=== PATIENT | female | born 1955 | race Caucasian/White ===

== ENCOUNTER → 2017-01-19 | Outpatient (CLI) | payer BC ==
--- NOTE | 2017-01-20 08:21 | MM ---
Reason for exam: screening (asymptomatic). Last mammogram was performed 1 year and 2 months ago. History: Patient is postmenopausal. Took hormonal contraceptives for 22 years. Taking estrogen for 7 years beginning at age 53. Physical Findings: A clinical breast exam by your physician is recommended on an annual basis and results should be correlated with mammographic findings. MG Screening Mammo w CAD Bilateral CC and MLO view(s) were taken. Prior study comparison: November 06, 2015, left breast MG 3d work up w/cad LT. October 22, 2015, bilateral MG screening mammo w CAD. The breast tissue is heterogeneously dense. This may lower the sensitivity of mammography. There is no discrete abnormality. No significant changes when compared with prior studies. ASSESSMENT: Negative, BI-RAD 1 RECOMMENDATION: Routine screening mammogram of both breasts in 1 year.
== END | disposition home or self-care (01) ==
LOC: RADMAMWWP 13:46
PROVIDERS: ATTEND Internal Medicine
DX: Z12.31 Encounter for screening mammogram for malignant neoplasm of breast (principal)

== ENCOUNTER → 2017-09-06 | Outpatient (CLI) | payer BC ==
--- NOTE | 2017-09-06 15:56 | XR ---
EXAMINATION TYPE: XR chest 2V DATE OF EXAM: 09/06/2017 COMPARISON: NONE HISTORY: Persistent cough TECHNIQUE: Frontal and lateral views of the chest are obtained. FINDINGS: There is no focal air space opacity, pleural effusion, or pneumothorax seen. The cardiac silhouette size is within normal limits. Spinal curvature could be positional. Some linear scarring or atelectasis present in the lingula. The osseous structures are intact. IMPRESSION: No acute cardiopulmonary process.
== END | disposition home or self-care (01) ==
LOC: RADXRYALE 13:36
PROVIDERS: ATTEND Internal Medicine
DX: R05 Cough (principal)
CPT/HCPCS: 71020

== ENCOUNTER → 2018-01-22 | Outpatient (CLI) | payer BC ==
--- NOTE | 2018-01-23 11:15 | MM ---
Reason for exam: screening (asymptomatic). Last mammogram was performed 1 year ago. History: Patient is postmenopausal. Took hormonal contraceptives for 22 years. Taking estrogen for 7 years beginning at age 53. MG Screening Mammo w CAD Bilateral CC and MLO view(s) were taken. Prior study comparison: January 19, 2017, bilateral MG screening mammo w CAD. November 06, 2015, left breast MG 3d work up w/cad LT. There are scattered fibroglandular densities. No significant changes when compared with prior studies. ASSESSMENT: Benign, BI-RAD 2 RECOMMENDATION: Routine screening mammogram of both breasts in 1 year.
== END | disposition home or self-care (01) ==
LOC: RADMAMWWP 11:21
PROVIDERS: ATTEND Internal Medicine
DX: Z12.31 Encounter for screening mammogram for malignant neoplasm of breast (principal)
CPT/HCPCS: 77067

== ENCOUNTER → 2019-02-05 | Outpatient (CLI) | payer BC ==
--- NOTE | 2019-02-05 16:21 | XR ---
EXAMINATION TYPE: XR ankle complete LT DATE OF EXAM: 02/05/2019 CLINICAL HISTORY: Lateral left ankle pain after straining injury 12 days ago TECHNIQUE: Frontal, lateral and oblique images of the left ankle are obtained. COMPARISON: None. FINDINGS: There is no acute fracture/dislocation evident in the left ankle. The ankle mortise appea rs within normal limits. The overlying soft tissue appears unremarkable. IMPRESSION: There is no acute fracture or dislocation in the left ankle.
--- NOTE | 2019-02-05 16:22 | XR ---
EXAMINATION TYPE: XR Hip Complete RT DATE OF EXAM: 02/05/2019 CLINICAL HISTORY: Right hip pain for 2 to 3 years TECHNIQUE: AP and frogleg views of the right hip are obtained. COMPARISON: None. FINDINGS: There is no acute fracture/dislocation evident in the right hip. The joint space in the r ight hip appears mildly narrowed in a cephalomedial direction. There is acetabular roof sclerosis and small osteophyte of the superior acetabular rim. Minimal sclerosis is also seen of the visualized po rtion of the right sacroiliac joint. The overlying soft tissue appears unremarkable. IMPRESSION: There is no acute fracture or dislocation in the right hip. Moderate right femoral aceta bular arthropathy and mild degenerative changes of the visualized portions of the sacroiliac joint.
--- NOTE | 2019-02-05 16:25 | XR ---
EXAMINATION TYPE: XR lumbosacral spine min 4V DATE OF EXAM: 02/05/2019 CLINICAL HISTORY: Chronic low back pain since 2012 TECHNIQUE: Frontal, lateral, and oblique images of the lumbar spine are obtained. COMPARISON: None FINDINGS: There are 5 lumbar type vertebral bodies identified. The lumbar spine shows satisfactory vertebral body heights. There is grade 1 anterolisthesis of L4 on L5. No distinct pars interarticular is defects are seen. This may be due to facet arthropathy and facet arthropathy is seen from L3 throu gh S1. Very minimal anterior osteophytes are also seen throughout the lumbar spine. No significant ne ural foraminal narrowing on the oblique views radiographically. Transverse processes and pedicles are unremarkable. The overlying soft tissue appears unremarkable. IMPRESSION: No acute fracture of the lumbar spine. Grade 1 anterolisthesis of L4 on L5 is likely due to hypertrophic facet changes.
== END | disposition home or self-care (01) ==
LOC: RADXRYALE 15:54
PROVIDERS: ATTEND Internal Medicine
DX: M16.11 Unilateral primary osteoarthritis, right hip (principal); M53.3 Sacrococcygeal disorders, not elsewhere classified; M43.16 Spondylolisthesis, lumbar region; M46.96 Unspecified inflammatory spondylopathy, lumbar region; M25.572 Pain in left ankle and joints of left foot
CPT/HCPCS: 72110; 73502

== ENCOUNTER → 2019-02-06 | Outpatient (CLI) | payer BC ==
--- NOTE | 2019-02-07 10:55 | MM ---
Reason for exam: screening (asymptomatic). Last mammogram was performed 1 year ago. History: Patient is postmenopausal. Took hormonal contraceptives for 22 years. Taking estrogen for 7 years beginning at age 53. Physical Findings: A clinical breast exam by your physician is recommended on an annual basis and results should be correlated with mammographic findings. MG 3D Screening Mammo W/Cad Bilateral CC and MLO view(s) were taken. Prior study comparison: January 22, 2018, bilateral MG screening mammo w CAD. January 19, 2017, bilateral MG screening mammo w CAD. The breast tissue is heterogeneously dense. This may lower the sensitivity of mammography. Finding #1: There is a 10 mm equal density (isodense) mass in the outer quadrant, posterior position of the right breast. Finding #2: There are typically benign calcifications in both breasts. ASSESSMENT: Incomplete: need additional imaging evaluation, BI-RAD 0 RECOMMENDATION: Special view mammogram of the right breast. If lesion persists on supplemental views, image directed ultrasound is recommended. [facility] will attempt to contact patient to return for supplemental views and ultrasound if indicated.
== END | disposition home or self-care (01) ==
LOC: RADMAMWWP 10:21
PROVIDERS: ATTEND Internal Medicine
DX: Z12.31 Encounter for screening mammogram for malignant neoplasm of breast (principal)
CPT/HCPCS: 77063; 77067

== ENCOUNTER → 2019-02-12 | Outpatient (CLI) | payer BC ==
--- NOTE | 2019-02-12 11:47 | MM ---
Reason for exam: additional evaluation requested from abnormal screening. Last mammogram was performed less than 1 month ago. History: Patient is postmenopausal. Took hormonal contraceptives for 22 years. Taking estrogen for 7 years beginning at age 53. Physical Findings: Nurse did not find any significant physical abnormalities on exam. MG 3D Work Up W/Cad RT CC and MLO view(s) were taken of the right breast. Prior study comparison: February 06, 2019, bilateral MG 3d screening mammo w/cad. January 22, 2018, bilateral MG screening mammo w CAD. The breast tissue is heterogeneously dense. This may lower the sensitivity of mammography. There is no discrete abnormality including area of concern right upper outer quadrant. No significant new findings when compared with previous films. These results were verbally communicated with the patient and result sheet given to the patient on 02/12/19. ASSESSMENT: Probably benign, BI-RAD 3 RECOMMENDATION: Follow-up diagnostic mammogram of the right breast in 6 months.
== END ==
LOC: RADMAMWWP 10:24
PROVIDERS: ATTEND Internal Medicine
DX: R92.8 Other abnormal and inconclusive findings on diagnostic imaging of breast (principal)
CPT/HCPCS: 77061; 77065

== ENCOUNTER → 2019-08-19 | Outpatient (CLI) | payer BC ==
--- NOTE | 2019-08-19 11:25 | MM ---
Reason for exam: screening (asymptomatic). Last mammogram was performed 6 months ago. History: Patient is postmenopausal. Took hormonal contraceptives for 22 years. Taking estrogen for 7 years beginning at age 53. Physical Findings: A clinical breast exam by your physician is recommended on an annual basis and results should be correlated with mammographic findings. MG 3D Diag Mammo W/Cad RT CC and MLO view(s) were taken of the right breast. Prior study comparison: February 12, 2019, right breast MG 3d work up w/cad RT. February 06, 2019, bilateral MG 3d screening mammo w/cad. The breast tissue is heterogeneously dense. This may lower the sensitivity of mammography. The asymmetric density posteriorly and laterallay does not persist on 3D images. No significant new findings when compared with previous films. These results were verbally communicated with the patient and result sheet given to the patient on 08/19/19. ASSESSMENT: Negative, BI-RAD 1 RECOMMENDATION: Return to routine screening mammogram schedule for both breasts.
== END | disposition home or self-care (01) ==
LOC: RADMAMWWP 09:09
PROVIDERS: ATTEND Internal Medicine
DX: R92.8 Other abnormal and inconclusive findings on diagnostic imaging of breast (principal)
CPT/HCPCS: 77061; 77065

== ENCOUNTER → 2019-11-04 | Outpatient (CLI) | payer BC ==
--- NOTE | 2019-11-04 16:08 | XR ---
EXAMINATION TYPE: XR chest 2V DATE OF EXAM: 11/04/2019 COMPARISON: 09/06/2017 HISTORY: 64-year-old female with cough TECHNIQUE: Frontal and lateral views FINDINGS: The cardiomediastinal silhouette, aorta, and pulmonary vasculature are within normal limits. Atherosc lerotic arch calcifications. Mild interstitial prominence is unchanged. Strandy atelectasis at the le ft base. No consolidation or pleural effusion. IMPRESSION: Chronic changes along with strandy left basilar atelectasis. No acute process seen.
== END | disposition home or self-care (01) ==
LOC: RADXRYALE 15:48
PROVIDERS: ATTEND Internal Medicine
DX: J98.11 Atelectasis (principal); R05 Cough
CPT/HCPCS: 71046

== ENCOUNTER → 2020-06-05 | Outpatient (CLI) | payer MEDICARE, BC ==
[2020-06-05 13:53] LABS: HCT 41.3 % (34.0-46.0); HGB 13.6 gm/dL (11.4-16.0); MCH 30.7 pg (25.0-35.0); MCV 93.1 fL (80.0-100.0); Mean Platelet Volume 8.3; Platelet Count 221 k/uL (150-450); RBC 4.43 m/uL (3.80-5.40); RDW 12.4 % (11.5-15.5); WBC 6.8 k/uL (3.8-10.6)
[2020-06-05 14:02] LABS: Albumin 4.4 g/dL (3.5-5.0); Calcium 9.5 mg/dL (8.4-10.2); Potassium 4.2 mmol/L (3.5-5.1); Total Bilirubin 0.4 mg/dL (0.2-1.3); Total Protein 7.1 g/dL (6.3-8.2)
[2020-06-05 14:09] LABS: INR 0.9 (<1.2); Partial Thromboplastin Time 24.4 sec (22.0-30.0); Prothrombin Time 9.8 sec (9.0-12.0)
[2020-06-05 15:26] LABS: Appearance,Urine Clear (Clear); Bilirubin,Urine Negative (Negative); Blood,Urine Negative (Negative); Color,Urine Yellow; Glucose,Urine (UA) Negative (Negative); Ketones,Urine Negative (Negative); Leukocyte Esterase,Urine Negative (Negative); Nitrite,Urine Negative (Negative); Protein,Urine Negative (Negative); Specific Gravity,Urine 1.016 (1.001-1.035); Urobilinogen,Urine <2.0 mg/dL (<2.0)
== END | disposition home or self-care (01) ==
LOC: LABPAT 12:16
PROVIDERS: ATTEND Orthopaedic Surgery
DX: Z01.818 Encounter for other preprocedural examination (principal); Z01.812 Encounter for preprocedural laboratory examination
CPT/HCPCS: 36415; 80053; 81003; 85027; 85610; 85730; 86850; 86900; 86901; 87070; 93005

== ENCOUNTER 2020-06-09 09:52 | Day surgery (SDC) | payer MEDICARE, BC ==
[2020-06-03 08:38] VITALS: BMI 26.0
[~2020-06-09 09:52] MED LIST: ACETAMINOPHEN TAB 500 MG TAB PO ONE; DEXAMETHASONE SOD PHOSPHATE 10 MG/ML 1 ML VIAL IV ONE; GABAPENTIN 300 MG CAP PO ONE; HYDROmorphone 0.5 MG/0.5 ML SYRINGE IVP PRN; LACTATED RINGERS 1,000 ML IV SCH; LIDOCAINE 1% (10MG/ML) FOR IV START INTRADERMA PRN; MELOXICAM 7.5 MG TAB PO ONE; MIDAZOLAM 2 MG/2 ML VIAL IV PRN; TRANEXAMIC ACID 1,000 MG in SODIUM CHLORIDE 0.9% 100 ML IVPB ONE; fentaNYL (PF) 50 MCG/ML 2 ML AMP IVP PRN
[2020-06-09] MEDS ORDERED: HYDROcodone/APAP 5-325MG 1 EACH TAB PO PRN ×2 (10:55)
[2020-06-09] MEDS ORDERED: MAGNESIUM HYDROXIDE 2,400 MG/10 ML CUP PO PRN (10:55)
[2020-06-09] MEDS ORDERED: hydrOXYzine pamoate 25 MG CAP PO PRN (10:55)
[2020-06-09] MEDS ORDERED: NALOXONE 0.4 MG/ML 1 ML VIAL IV PRN (10:55)
[2020-06-09] MEDS ORDERED: ONDANSETRON 4 MG/2 ML VIAL IVP PRN (10:55)
[2020-06-09] MEDS ORDERED: diazePAM 5 MG TAB PO PRN (10:55)
[2020-06-09] MEDS ORDERED: HYDROmorphone 0.5 MG/0.5 ML SYRINGE IVP PRN ×3 (10:55)
[2020-06-09] MEDS ORDERED: fentaNYL (PF) 50 MCG/ML 2 ML AMP ONE (11:00)
[2020-06-09] MEDS ORDERED: HEPARIN SODIUM,PORCINE 10,000 UNIT/ML 1 ML VIAL ONE (11:00)
[2020-06-09] MEDS ORDERED: PROPOFOL 10 MG/ML 20 ML VIAL IV ONE (11:00)
[2020-06-09] MEDS ORDERED: SODIUM CHLORIDE 0.9% 100 ML BAG ONE (11:00)
[2020-06-09] MEDS ORDERED: SODIUM CHLORIDE 0.9% IRRIG 1,000 ML BTL IRRIGATION ONE (11:00)
[2020-06-09] MEDS ORDERED: TRANEXAMIC ACID 1,000 MG/10 ML VIAL ONE (11:00)
[2020-06-09] MEDS ORDERED: MIDAZOLAM 2 MG/2 ML VIAL ONE (11:00)
[2020-06-09] MEDS ORDERED: ceFAZolin 3,000 MG in SODIUM CHLORIDE 0.9% IRRIGATIO 3,000 ML IRRIGATION ONE (11:08)
[2020-06-09] MEDS: ROPIVACAINE 246.25 MG, EPINEPHrine 0.5 MG, KETOROLAC 30 MG, cloNIDine HCL/PF 80 MCG, WA... MISCELLANE ONE ×10 (11:12→12:16)
--- NOTE | 2020-06-09 12:25 | P.OP ---
Date of Procedure: 06/09/20 Preoperative Diagnosis: Severe osteoarthritis right hip Postoperative Diagnosis: Severe osteoarthritis right hip Procedure(s) Performed: Right total hip arthroplasty with a direct anterior approach Implants: [employer] Polarstem size 0 standard [employer] R3, 3 hole acetabular shell, 48 mm [employer] reflection 6.5 mm cancellus screw, 20 mm 2 [employer] R3, XLPE 20 acetabular liner [employer] Oxinium femoral head 32 m, +0 All components were press-fit. The articulation is Oxinium on polyethylene. Anesthesia: spinal Surgeon: Karthik Olson Nursing Administrator #1: Shi Bain Estimated Blood Loss (ml): 100 Pathology: other (Femoral head) Condition: stable Disposition: PACU Indications for Procedure: After failure of conservative treatment we discussed the surgical and nonsurgical treatment options at length. Patient wishes to proceed with a total hip arthroplasty with a direct anterior approach. Complications specific to this procedure were discussed at length, including but not limited to infection, leg length discrepancy, dislocation, and nerve injury. Covid-19 was also discussed at length with the patient, and they are aware of the current policies and procedures. The patient was given the option of delaying surgery, but they elect to proceed knowing these risks. Patient is aware of all these complications and informed consent was obtained Operative Findings: The operative findings are consistent with severe osteoarthritis of the right hip Description of Procedure: Patient was seen and evaluated in the preoperative area, consent was reviewed, and the surgical site was marked with a skin marker. Patient was then brought to the operating room and given prophylactic antibiotics intravenously. 1 g of Tranexamic acid was also given. A spinal anesthetic was administered by the anesthesia department. The patient was then placed on the [place] table with the bony prominences well-padded. The hip area was then prepped and draped in usual sterile fashion. A universal timeout was then performed, which confirmed the patient's name, surgical site, ALLERGIES, and procedure being performed. Next the incision site was located at 1 cm distal and 1 cm lateral to the anterior superior iliac spine. The skin and subcutaneous tissues were sharply incised. Incision was carefully dissected down to the fascia overlying the tensor fascia delmy muscle. This fascia was then incised in line with the incision. Next, using blunt finger dissection, the tensor fascia delmy muscle was dissected off its investing fascia. The muscle was then carefully retracted laterally with a cobra retractor over the lateral neck of the femur. Next, the circumflex vessels were identified and cauterized using the AquaMantis device. The anterior hip capsule was then exposed. The capsule was then opened and an inverted T fashion. Cobra retractors were then placed intracapsularly. The proximal femur was then visualized. The femoral neck was then osteotomized appropriate level above the lesser trochanter. Small amount of traction was placed with the [place] table. A small wedge of bone was then removed from the remaining femoral head. Next, using a corkscrew femoral head was easily removed from the acetabulum. On gross visual inspection, the femoral head had complete loss of articular cartilage in multiple periarticular osteophytes. Attention was then turned to the acetabulum. the acetabulum was exposed and any remaining labrum was excised. Sequential reaming of the acetabulum was performed using fluoroscopic guidance. When the appropriate size was reached, a trial was then placed. The position and fit of the trial was checked with fluoroscopy. The trial was then removed. Then, using fluoroscopic guidance, the final implant was impacted at 20 of anteversion and 40 of abduction, and fully seated in the acetabulum. 2 screws were then placed in the acetabulum. Again fluoroscopy was used to check position of the screws. Next, the liner was then impacted, with a 20 elevated liner located in the anterior superior quadrant. Component locking was confirmed. Attention was then directed to the femur. With the aid of the [place] table, the femur was externally rotated to approximately 130, extended, and abducted under the opposite leg. A side hook was then placed under the proximal femur, and the side hook elevator was used to elevate the proximal femur. Retractors were then placed. A capsular release was performed, as well as a release of the conjoined tendon, which afforded excellent visualization of the proximal femur. Next, a box osteotome was used to lateralize the proximal femur. A associate merchandise planner was then used to locate the femoral canal. Sequential broaching was then performed with appropriate size which afforded excellent fixation in the proximal femur. A trial was then placed with appropriate head and neck, and the hip was gently reduced with the aid of the [place] table. Fluoroscopy was then used to check position of the components, as well as to ensure equal leg lengths. The hip was then gently dislocated and the trials were then removed. Final implants were then impacted and the hip was again reduced. Final fluoroscopic x-rays confirmed that the components were in anatomic position, as well as equal leg lengths. The hip was also taken through range of motion, and found to be stable. The hip was then copiously irrigated with antibiotic solution with pulsatile lavage. The hip was then irrigated with Irrisept solution. The soft tissues were then injected with a ropivacaine solution, which consisted of 246.25 mg of ropivacaine, 0.5 mg of epinephrine, 30 mg of Toradol, 80 g of clonidine, and 48.45 mL of sterile water, for a total of 100 mL of fluid injected. A second dose of 1 g of Tranexamic acid was also given. the fascia was then closed with 2-0 strata fix suture. The subcutaneous tissue was closed with 3-0 Vicryl. The subcuticular tissue was closed with 3-0 strata fix suture. The skin was then closed with Dermabond glue and a sterile silver dressing. The patient was then transferred to the recovery room in stable condition. The assistant activities director JESSICA Freed was required due to the complexity of surgery, and the need for skilled equal opportunity assistant for positioning, draping, exposure, retraction, and closure of the wound.
--- NOTE | 2020-06-09 12:37 | FL ---
EXAMINATION TYPE: FL guidance operating room, XR Hip Limited RT DATE OF EXAM: 06/09/2020 CLINICAL HISTORY: Right hip pain and osteoarthritis. TECHNIQUE: Fluoroscopy. Limited intraoperative views right hip. COMPARISON: Right hip x-ray February 05, 2019.. FINDINGS: Fluoroscopic guidance was provided during right hip replacement procedure performed by Dr. Olson. A total of 54 seconds of fluoroscopic time was utilized during the procedure and two spot intraoperative images are acquired. Images acquired show metallic hardware from total right hip arthroplasty satisfactory in position on frontal projection. IMPRESSION: As Above.
--- NOTE | 2020-06-09 13:09 | XR ---
EXAMINATION TYPE: XR Hip Limited RT DATE OF EXAM: 06/09/2020 CLINICAL HISTORY: Right hip pain and osteoarthritis. TECHNIQUE: Single AP portable view of right hip is obtained immediately postoperatively. COMPARISON: Right hip x-ray from 07/19/2019.. FINDINGS: Metallic hardware from right hip arthroplasty is seen and appears satisfactory in alignment and position. There is evidence of recent surgery with subcutaneous gas noted laterally. IMPRESSION: Metallic hardware from right hip arthroplasty is satisfactory in position.
[2020-06-09] MEDS ORDERED: SODIUM CHLORIDE 0.9% 1,000 ML IV ONE ×2 (13:23)
[2020-06-09] MEDS: SODIUM CHLORIDE 0.9% 1,000 ML IV SCH (16:57)
--- NOTE | 2020-06-09 17:12 | P.CON ---
Consult Note - . Consult date: 06/09/20 Assessment/Plan:: Reason for consult- management of chronic medical conditions [facility]- Mrs. Madrid is a 65-year-old female with a past medical history of hypertension and hyperlipidemia along with osteoarthritis of the right hip admitted for elective right total hip arthroplasty due to severe osteoarthritis of the right hip. Patient had the procedure done today and she is comfortably lying in the bed. Patient complaints of numbness in the surgical site. Patient denies having any chest pain or palpitations. No cough or difficulty in breathing. No abdominal pain nausea vomiting or diarrhea. Patient denies having any history of smoking or alcohol abuse. She has been complaint with her medications. On reviewing the records patient temperature is 97.5, heart rate 74, respiration rate 18, blood pressure 131/81, saturating at 98% on room air. She had labs drawn couple of days back and her hemoglobin is stable at 13.6 and her creatinine was 0.80. REVIEW OF SYSTEMS: CONSTITUTIONAL: No fever, no malaise, no fatigue. HEENT: No recent visual problems or hearing problems. Denied any sore throat. CARDIOVASCULAR: No chest pain, palpitations, orthopnea or PND. No lower swelling PULMONARY: No shortness of breath, no cough, no hemoptysis. GASTROINTESTINAL: No diarrhea, no nausea,no abdominal pain. NEUROLOGICAL: No headaches, no weakness, no numbness. HEMATOLOGICAL: Denies any bleeding or petechiae. GENITOURINARY: Denies any burning micturition, frequency, or urgency. MUSCULOSKELETAL/RHEUMATOLOGICAL: multiple joint osteoarthritis ENDOCRINE: Denies any polyuria or polydipsia. The rest of the 13-point review of systems is negative. Past Medical History Past Medical History: Hyperlipidemia, Hypertension, Osteoarthritis (OA) Additional Past Medical History / Comment(s): "Ringing in ears." History of Any Multi-Drug Resistant Organisms: None Reported Past Surgical History: Hysterectomy Additional Past Surgical History / Comment(s): Right index finger surgery. Past Anesthesia/Blood Transfusion Reactions: Motion Sickness Past Psychological History: Depression Additional Psychological History / Comment(s): " just diagnosed with Lung Cancer." Smoking Status: Never smoker Past Alcohol Use History: Rare Past Drug Use History: None Reported - Past Family History Mother Family Medical History: No Reported History Medications and Allergies Home Medications Medication Instructions Recorded Confirmed Type Estradiol 0.5 mg PO DAILY 06/03/20 06/09/20 History Glucosamine (Unknown Dose) 1 tab PO HS 06/03/20 06/09/20 History Ibuprofen [Motrin] 800 mg PO TID PRN 06/03/20 06/09/20 History Losartan Potassium 50 mg PO HS 06/03/20 06/09/20 History [place]-3 Fatty Acids/Fish Oil [Fish 1 each PO DAILY 06/03/20 06/09/20 History Oil 1,000 mg Softgel] Pravastatin Sodium [Pravachol] 40 mg PO HS 06/03/20 06/09/20 History traMADol HCL 50 mg PO TID PRN 06/03/20 06/09/20 History Allergies Allergy/AdvReac Type Severity Reaction Status Date / Time pseudoephedrine Allergy Rash/Hives Verified 06/09/20 10:10 [From [facility]] shellfish derived [Shellfish] AdvReac Rash/Hives Verified 06/09/20 10:10 Physical Exam Vitals: Vital Signs Temp Pulse Pulse Resp BP BP Pulse Ox 06/09/20 16:12 97.5 F L 74 18 131/81 98 06/09/20 15:30 69 16 122/70 97 06/09/20 14:45 68 16 125/73 97 06/09/20 14:15 66 16 103/69 98 06/09/20 13:45 71 16 111/70 100 06/09/20 13:15 81 18 141/75 97 06/09/20 13:00 70 16 133/76 98 06/09/20 12:47 73 16 117/69 99 06/09/20 12:32 97.0 F L 84 16 104/59 96 06/09/20 10:15 97.9 F 98 16 143/93 98 Intake and Output 06/09/20 06/09/20 06/09/20 06:59 14:59 22:59 Intake Total 1051 200 Output Total 100 Balance 951 200 Intake: IV 1051 200 Output: Estimated Blood Loss 100 Other: Weight 65.8 kg PHYSICAL EXAMINATION: GENERAL: appears to be in no acute distress. HEENT: Pupils are round and equally reacting to light. EOMI. mild scleral icterus. No conjunctival pallor. Normocephalic, atraumatic. No pharyngeal erythema. No thyromegaly. CARDIOVASCULAR: S1 and S2 heard. No additional sounds. PULMONARY: Bilateral breath sounds are positive. No wheeze or crackles. ABDOMEN: Soft, nontender, nondistended, normoactive bowel sounds. No palpable organomegaly. MUSCULOSKELETAL: Right leg is neurovascularly intact. EXTREMITIES: No cyanosis, clubbing, or pedal edema. NEUROLOGICAL: Alert awake oriented 3, Gross neurological examination did not reveal any focal deficits. SKIN: No rash ASSESSMENT Status post right hip arthroplasty done today Hypertension Hyperlipidemia Degenerative joint disease History of hysterectomy History of depression PLAN: Postop patient's vitals have been stable. She has been started on her home medication. GI/DVT prophylaxis as per primary care team. Further recommendations to follow depending on the progress of the patient.
[2020-06-09] MEDS: ASPIRIN 325 MG TAB PO SCH (20:57)
[2020-06-09] MEDS ORDERED: PRAVASTATIN SODIUM 40 MG TAB PO SCH (21:00)
[2020-06-09] MEDS ORDERED: LOSARTAN 50 MG TAB PO SCH (21:00)
[2020-06-09] MEDS ORDERED: GLUCOSAMINE PO SCH (21:00)
[2020-06-09] MEDS ORDERED: SENNOSIDES-DOCUSATE SODIUM 1 EACH TAB PO SCH (21:00)
[2020-06-10] MEDS: SODIUM CHLORIDE 0.9% 1,000 ML IV SCH ×2 (04:11→08:30)
[2020-06-10 07:49] VITALS: BP 105/73; PULSE 68; RESP 17; TEMP 98.1
--- NOTE | 2020-06-10 08:31 | P.DS ---
Providers Expected date of discharge: 06/10/20 Attending physician: Karthik Olson Consults: 06/09/20 10:55 Consult Physician Routine Consulting Provider: Chester Marquez Consult Reason/Comments: medical management Do you want consulting provider notified?: Yes Primary care physician: Adelaide Lee - Discharge Diagnosis(es) (1) Osteoarthritis of right hip Current Visit: Yes Status: Acute (2) Status post total hip replacement, right Current Visit: Yes Status: Acute Hospital Course: This is a 65-year-old female with known history of degenerative arthritis of the right hip. The patient presents for evaluation. After discussion and consideration patient elects to proceed with total hip arthroplasty. The patient is seen preoperatively by Dr. Olson and medically cleared for surgery by their primary care physician. Patient is admitted to [facility] on 06/09/2020 for total hip arthroplasty. The procedures performed without complication or sequelae. The patient is doing well postoperatively. Labs and vital signs are stable on day of discharge. On day of discharge patient's hip incision is healing well. There is minimal erythema. There is no drainage noted at this time. There is minimal soft tissue swelling to the hip and thigh. Patient has full foot and ankle motion without difficulty or pain. Calf is soft and nontender to palpation. Neurovascular status to the right lower extremity is intact. Patient is discharged home in good condition. Opioid start talking form is reviewed and signed at patient bedside. Please see med rec for accurate list of home medications. Plan - Discharge Summary Discharge Rx Participant: Yes New Discharge Prescriptions: New Aspirin 325 mg PO BID #60 tab HYDROcodone/APAP 5-325MG [Sheridan 5-325] 1 - 2 tab PO Q6HR PRN #48 tab PRN Reason: Pain Sennosides [Senokot] 2 tab PO DAILY PRN #60 tablet PRN Reason: Constipation No Action Ibuprofen [Motrin] 800 mg PO TID PRN PRN Reason: Pain traMADol HCL 50 mg PO TID PRN PRN Reason: Pain Pinola-3 Fatty Acids/Fish Oil [Fish Oil 1,000 mg Softgel] 1 each PO DAILY Pravastatin Sodium [Pravachol] 40 mg PO HS Estradiol 0.5 mg PO DAILY Losartan Potassium 50 mg PO HS Glucosamine (Unknown Dose) 1 tab PO HS Discharge Medication List Estradiol 0.5 mg PO DAILY 06/03/20 [History] Glucosamine (Unknown Dose) 1 tab PO HS 06/03/20 [History] Ibuprofen [Motrin] 800 mg PO TID PRN 06/03/20 [History] Losartan Potassium 50 mg PO HS 06/03/20 [History] Pinola-3 Fatty Acids/Fish Oil [Fish Oil 1,000 mg Softgel] 1 each PO DAILY 06/03/20 [History] Pravastatin Sodium [Pravachol] 40 mg PO HS 06/03/20 [History] traMADol HCL 50 mg PO TID PRN 06/03/20 [History] Aspirin 325 mg PO BID #60 tab 06/10/20 [Rx] HYDROcodone/APAP 5-325MG [Sheridan 5-325] 1 - 2 tab PO Q6HR PRN #48 tab 06/10/20 [Rx] Sennosides [Senokot] 2 tab PO DAILY PRN #60 tablet 06/10/20 [Rx] Follow up Appointment(s)/Referral(s): Karthik Olson DO [Doctor of Osteopathic Medicine] - 2 Weeks Activity/Diet/Wound Care/Special Instructions: Weightbearing as tolerated with walker. Leave dressing intact. Dressing may be removed by home care nurse or by patient in 10 days. May shower with dressing on. Recommend use of compression stockings daily until follow up to help prevent swe lling and blood clots. May remove at night before sleeping. Please follow-up with [facility] in 2 weeks and call with any questions or concerns, . Discharge Disposition: HOME WITH HOME HEALTH SERVICES
[2020-06-10] MEDS: ASPIRIN 325 MG TAB PO SCH (08:48)
[2020-06-10] MEDS ORDERED: MELOXICAM 7.5 MG TAB PO SCH (09:00)
[2020-06-10] MEDS ORDERED: NON FORMULARY DRUG (Omega-3 Fatty Acids/Fish Oil [Fish Oil 1,000 Mg Softgel] 1 EACH) PO SCH (09:00)
[2020-06-10 09:34] LABS: Basophils % (A) 0 %; Eosinophils # (A) 0.1 k/uL (0-0.7); Eosinophils % (A) 1 %; HCT 35.5 % (34.0-46.0); Lymphocytes # (A) 1.6 k/uL (1.0-4.8); Lymphocytes % (A) 20 %; MCH 29.2 pg (25.0-35.0); MCV 94.2 fL (80.0-100.0); Mean Platelet Volume 8.7; Monocytes # (A) 0.4 k/uL (0-1.0); Monocytes % (A) 5 %; Neutrophils % (A) 73 %; Platelet Count 198 k/uL (150-450); RBC 3.77 m/uL (3.80-5.40); RDW 12.3 % (11.5-15.5); WBC 8.2 k/uL (3.8-10.6)
== END 2020-06-10 13:52 | disposition home health service (06) ==
LOC: OR 09:52 → 4SSUR 15:49 → OR 06-10 13:52
PROVIDERS: ATTEND Orthopaedic Surgery
DX: M16.11 Unilateral primary osteoarthritis, right hip (principal); I10 Essential (primary) hypertension; E78.5 Hyperlipidemia, unspecified; E78.00 Pure hypercholesterolemia, unspecified; F32.9 Major depressive disorder, single episode, unspecified; G89.29 Other chronic pain; Z79.3 Long term (current) use of hormonal contraceptives; Z79.891 Long term (current) use of opiate analgesic; Z79.1 Long term (current) use of non-steroidal anti-inflammatories (NSAID); Z79.899 Other long term (current) drug therapy; Z97.3 Presence of spectacles and contact lenses; Z91.013 Allergy to seafood; Z88.8 Allergy status to other drugs, medicaments and biological substances; Z90.710 Acquired absence of both cervix and uterus; Z98.890 Other specified postprocedural states; Z82.49 Family history of ischemic heart disease and other diseases of the circulatory system; Z83.3 Family history of diabetes mellitus
CPT/HCPCS: 97110; 97161; 97165; 86891; 85025; 88300; 73501 ×2; 27130; C1776; J2250; J0171; J1644; J1100; J0690 ×3; J3010; J1885; J2795; J2704; J0735; J1170; 36415; 86850; 86900; 86901

== ENCOUNTER → 2020-11-17 | Outpatient (CLI) | payer MEDICARE, BC ==
--- NOTE | 2020-11-18 10:58 | MM ---
Reason for exam: screening (asymptomatic). Last mammogram was performed 1 year and 3 months ago. History: Patient is postmenopausal. Took hormonal contraceptives for 22 years. Taking estrogen for 7 years beginning at age 53. Physical Findings: A clinical breast exam by your physician is recommended on an annual basis and results should be correlated with mammographic findings. MG 3D Screening Mammo W/Cad Bilateral CC and MLO view(s) were taken. Prior study comparison: August 19, 2019, right breast MG 3d diag mammo w/cad RT. February 12, 2019, right breast MG 3d work up w/cad RT. The breast tissue is heterogeneously dense. This may lower the sensitivity of mammography. Focal asymmetry distortion left upper outer quadrant 5cm from nipple. This finding is changed when compared with previous exams. ASSESSMENT: Incomplete: need additional imaging evaluation, BI-RAD 0 RECOMMENDATION: Special view mammogram of the left breast. If lesion persists on supplemental views, image directed ultrasound is recommended. [facility] will attempt to contact patient to return for supplemental views and ultrasound if indicated.
== END | disposition home or self-care (01) ==
LOC: RADMAMWWP 13:16
PROVIDERS: ATTEND Internal Medicine
DX: Z12.31 Encounter for screening mammogram for malignant neoplasm of breast (principal)
CPT/HCPCS: 77063; 77067

== ENCOUNTER → 2020-11-23 | Outpatient (CLI) | payer MEDICARE, BC ==
--- NOTE | 2020-11-23 13:33 | MM ---
Reason for exam: additional evaluation requested from abnormal screening. Last mammogram was performed less than 1 month ago. History: Patient is postmenopausal. Took hormonal contraceptives for 22 years. Taking estrogen for 7 years beginning at age 53. Physical Findings: Nurse did not find any significant physical abnormalities on exam. MG 3D Work Up W/Cad LT Spot compression CC, spot compression MLO, and LM view(s) were taken of the left breast. Prior study comparison: November 17, 2020, bilateral MG 3d screening mammo w/cad. August 19, 2019, right breast MG 3d diag mammo w/cad RT. The breast tissue is heterogeneously dense. This may lower the sensitivity of mammography. Upper outer quadrant focal asymmetry disperses on additional views. No significant new findings when compared with previous films. These results were verbally communicated with the patient and result sheet given to the patient on 11/23/20. ASSESSMENT: Benign, BI-RAD 2 RECOMMENDATION: Return to routine screening mammogram schedule for both breasts.
== END | disposition home or self-care (01) ==
LOC: RADMAMWWP 12:52
PROVIDERS: ATTEND Internal Medicine
DX: R92.8 Other abnormal and inconclusive findings on diagnostic imaging of breast (principal)
CPT/HCPCS: 77065; G0279; 77061

== ENCOUNTER → 2022-07-22 | Outpatient (CLI) | payer MEDICARE, BC ==
--- NOTE | 2022-07-25 19:22 | MM ---
Reason for Exam: Screening (asymptomatic). Last mammogram was performed 1 year(s) and 8 month(s) ago. Patient History: Menarche at age 14. First Full-Term at age 24. Left ovary removed at age 54. Right ovary removed at age 54. Hysterectomy at age 54. Postmenopausal. Currently using Estrogen, beginning at age 53 for 7 years. Patient used Hormonal Contraceptives for 22 years. Risk Values: Mago 5 year model risk: 1.4%. NCI Lifetime model risk: 4.8%. Prior Study Comparison: 08/19/2019 Right Diagnostic Mammogram, [facility]. 11/17/2020 Bilateral Screening Mammogram, [facility]. 11/23/2020 Left Diagnostic Mammogram, [facility]. Tissue Density: The breast tissue is heterogeneously dense. This may lower the sensitivity of mammography. Findings: Analyzed By CAD. The irregular asymmetric density central upper right MLO view remains unchanged back to 2019. No significant change from prior exams. Overall Assessment: Benign, BI-RAD 2 Management: Screening Mammogram of both breasts in 1 year. 1. Patient should continue monthly self breast exams. 2. A clinical breast exam by your physician is recommended on an annual basis. 3. This exam should not preclude additional follow-up of suspicious palpable abnormalities. Electronically signed and approved by: Leatha Patel M.D. Radiologist
== END | disposition home or self-care (01) ==
LOC: RADMAMWWP 13:35
PROVIDERS: ATTEND Internal Medicine
DX: Z12.31 Encounter for screening mammogram for malignant neoplasm of breast (principal); Z78.0 Asymptomatic menopausal state
CPT/HCPCS: 77063; 77067

== ENCOUNTER → 2023-11-21 | Outpatient (CLI) | payer MEDICARE, BC ==
--- NOTE | 2023-11-21 14:27 | BD ---
EXAMINATION TYPE: Axial Bone Density DATE OF EXAM: 11/21/2023 CLINICAL HISTORY: 68 years old Female. 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 Bone mineral density as measured about the Lumbar spine is: ----- L1-L4(G/cm2): 1.363 T Score Values are as follows: ----- L1: 1.4 ----- L2: 0.8 ----- L3: 1.7 ----- L4: 1.8 ----- L1-L4: 1.5 Z Score Values are as follows: ----- L1: 2.8 ----- L2: 2.2 ----- L3: 3.1 ----- L4: 3.1 ----- L1-L4: 2.9 Bone mineral density baseline Bone mineral density about the L hip (g/cm2): 1.224 T Score values are as follows: -----L Neck: 0.3 -----L Total: 1.7 Z Score values are as follows: -----L Neck: 1.7 -----L Total: 2.9 Bone mineral density baseline FRAX%s: The graph provided illustrates a 6.4% chance for a major osteoporotic fx and a 0.2% chance fo r the hips probability for fx in 10 years time. IMPRESSION: Normal (Values between +1 and -1 indicate normal bone mass). Consider repeating this study in 5 year s or sooner if there is some new clinical indication. NOTE: T-SCORE=SD OF THE YOUNG ADULT MEAN.
--- NOTE | 2023-11-22 09:03 | MM ---
Reason for Exam: Screening (asymptomatic). Last mammogram was performed 1 year(s) and 4 month(s) ago. Patient History: Menarche at age 14. First Full-Term at age 24. Left ovary removed at age 54. Right ovary removed at age 54. Hysterectomy at age 54. Postmenopausal. Currently using Estrogen, beginning at age 53 for 7 years. Patient used Hormonal Contraceptives for 22 years. Risk Values: Mago 5 year model risk: 1.4%. NCI Lifetime model risk: 4.6%. Prior Study Comparison: 11/17/2020 Bilateral Screening Mammogram, [facility]. 11/23/2020 Left Diagnostic Mammogram, [facility]. 07/22/2022 Bilateral MG 3D screening mammo w/cad, [facility]. Tissue Density: There are scattered fibroglandular densities. Findings: Analyzed By CAD. There is no suspicious group of microcalcifications or new suspicious mass. Overall Assessment: Negative, BI-RAD 1 Management: Screening Mammogram of both breasts in [address] [facility] will attempt to contact patient to return for supplemental views and ultrasound if indicated. Patient should continue monthly self-breast exams. A clinical breast exam by your physician is recommended on an annual basis. This exam should not preclude additional follow-up of suspicious palpable abnormalities. Note on Mago scores and lifetime risk: 1. A Mago score greater than 3% is considered moderate risk. If this is the case, consider specialist referral to assess eligibility for a risk reducing agent. 2. If overall lifetime risk for the development of breast cancer is 20% or higher, the patient may qualify for future screening with alternating mammogram and breast MRI. Electronically signed and approved by: Gabe Young DO
== END | disposition home or self-care (01) ==
LOC: RADMAMWWP 13:41
PROVIDERS: ATTEND Internal Medicine
DX: Z12.31 Encounter for screening mammogram for malignant neoplasm of breast (principal); N95.8 Other specified menopausal and perimenopausal disorders
CPT/HCPCS: 77063; 77067; 77080